=== PATIENT | female | born 2000 | race Asian ===

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

== ENCOUNTER 2021-09-08 17:41 | Emergency (ER) | payer OTHER ==
[~2021-09-08] VITALS: Ht 157.5 cm; Wt 72.1 kg
[~2021-09-08 17:41] MED LIST: IBUPROFEN 600600 M1 PO
[2021-09-08 17:43] VITALS: BP 117/79
== END 2021-09-08 19:00 | disposition home or self-care (01) ==
LOC: ER 17:41
DX: M79.652 Pain in left thigh (principal)

== ENCOUNTER 2021-09-28 16:00 | Emergency (ER) | payer OTHER ==
[~2021-09-28] VITALS: Ht 157.5 cm; Wt 72.1 kg
[2021-09-28 16:13] VITALS: BP 103/55
== END 2021-09-28 18:33 | disposition home or self-care (01) ==
LOC: ER 16:00
PROVIDERS: Nurse Practitioner
DX: U07.1 COVID-19 (principal)